=== PATIENT | female | born 1995 | race Caucasian/White ===

== ENCOUNTER 2022-11-11 20:10 | Emergency (ER) | payer MEDICAID, OTHER ==
[~2022-11-11] VITALS: Ht 154.9 cm; Wt 109.1 kg
[~2022-11-11 20:10] MED LIST: DOCU-385 PO; FERR325T27 PO; IBUP-1493 PO; PREN-134 PO
[2022-11-11 20:21] VITALS: BP 116/72; PULSE 106; RESP 18; TEMP 98.4
[2022-11-11] MEDS ORDERED: TRAZ-252 PO (20:27)
[2022-11-11] MEDS ORDERED: SERT-158 PO (20:27)
[2022-11-11] MEDS ORDERED: ATOM10CA4 PO (20:27)
[2022-11-11] MEDS ORDERED: BENZ0.5T49 PO (20:27)
[2022-11-11] MEDS ORDERED: LUMA42CA PO (20:27)
[2022-11-11] MEDS ORDERED: ARIP2TAB27 PO (20:27)
[2022-11-12 00:07] LABS: COVID AG,FIA SOURCE NASAL SWAB
[2022-11-12 00:23] LABS: INFLUENZA TYPE A NEGATIVE FOR TYPE A (NEGATIVE); INFLUENZA TYPE B NEGATIVE FOR TYPE B (NEGATIVE)
[2022-11-12] MEDS ORDERED: PredniSONE 20 MG TABLET PO ONE (00:30)
[2022-11-12] MEDS ORDERED: ALBU18HF12 IH (00:38)
[2022-11-12] MEDS ORDERED: PRED-554 PO (00:38)
== END 2022-11-12 00:50 | disposition home or self-care (01) ==
LOC: EMS 20:15
DX: J45.909 Unspecified asthma, uncomplicated (principal); F41.9 Anxiety disorder, unspecified; F31.9 Bipolar disorder, unspecified; F20.9 Schizophrenia, unspecified; Z88.0 Allergy status to penicillin; Z91.040 Latex allergy status; Z20.822 Contact with and (suspected) exposure to COVID-19
CPT/HCPCS: 99284; 87426; 87804; 71045; J7512